=== PATIENT | female | born 1965 | race Caucasian/White ===

== ENCOUNTER 2018-03-27 12:29 | Emergency (ER) | payer OTHER ==
[2018-03-27 12:54] VITALS: BP 119/51
--- NOTE | 2018-03-27 13:06 | UC ---
UC General HPI - HPI Summary HPI Summary: pt c/o a 3-5 days hx nasal congestion, ear pressure, post nasal drip that is causing a cough. no cp, sob or fever. also notes to bug bites on back of neck. taking her allergy medication - History of Current Complaint Stated Complaint: BILATERAL EAR PAIN,CONGESTION Time Seen by Provider: 03/27/18 12:49 Hx Obtained From: Patient Hx Last Menstrual Period: 03/26 Onset/Duration: Gradual Onset Timing: Constant Pain Intensity: 2 Aggravating: nothing Alleviating: nothing Associated Signs & Symptoms: Positive: Cough, Headache. Negative: Chest Pain, Fever, SOB, Wheezing - Allergy/Home Medications Allergies/Adverse Reactions: Allergies Allergy/AdvReac Type Severity Reaction Status Date / Time amitriptyline Allergy Vomiting Verified 03/27/18 12:56 diclofenac Allergy Vomiting Verified 03/27/18 12:56 Sulfa (Sulfonamide Allergy Hives Verified 03/27/18 12:56 Antibiotics) PMH/Surg Hx/FS Hx/Imm Hx - Additional Past Medical History Additional PMH: chronic neck/back pain Other History Of: Negative For: HIV - Surgical History Surgical History: Yes Surgery Procedure, Year, and Place: C-Sections, 1984 1986 1993; Tonsillectomy as a child - Family History Known Family History: Positive: None - neg for HTN or CAD - Social History Occupation: Disabled Lives: With Family Alcohol Use: Occasionally Substance Use Type: None Smoking Status (MU): Former Smoker When Did the Patient Quit Smoking/Using Tobacco: ~2000 - Immunization History Most Recent Influenza Vaccination: Not the 2014/2015 Season Vaccination Up to Date: Yes Review of Systems Constitutional: Negative Skin: Rash - insect bites neck Eyes: Negative ENT: Ear Ache, Nasal Discharge, Sinus Congestion, Sinus Pain/Tenderness Respiratory: Cough Cardiovascular: Negative Gastrointestinal: Negative Genitourinary: Negative Motor: Negative Neurovascular: Negative Musculoskeletal: Negative Neurological: Negative Psychological: Negative Is Patient Immunocompromised?: No All Other Systems Reviewed And Are Negative: Yes Physical Exam Triage Information Reviewed: Yes Appearance: Well-Appearing Vital Signs: Initial Vital Signs Temp 98.5 F 03/27/18 12:41 Pulse 85 03/27/18 12:41 Resp 16 03/27/18 12:41 BP 119/51 03/27/18 12:41 Pulse Ox 100 03/27/18 12:41 Vital Signs Reviewed: Yes Eyes: Positive: Conjunctiva Clear ENT: Positive: Pharynx normal, Nasal congestion, TMs normal - 1mm abrasion R canal. Negative: Nasal drainage, Sinus tenderness Neck: Positive: Supple, Nontender, No Lymphadenopathy Respiratory: Positive: Lungs clear, Normal breath sounds Cardiovascular: Positive: RRR, No Murmur Abdomen Description: Positive: Nontender, No Organomegaly, Soft Bowel Sounds: Positive: Present Musculoskeletal: Positive: ROM Intact Neurological: Positive: Alert Psychological: Positive: Age Appropriate Behavior Skin Exam: Normal, Other - 2 small red spots to back of neck c/w insect bites. blanches, no blistering and not petechial. Course/Dx - Course Course Of Treatment: pt advised to consider decongestant. nothing to suggest bacterial infection. - Differential Dx - Multi-Symptom Provider Diagnoses: URI, insect bites neck Discharge - Sign-Out/Discharge Documenting (check all that apply): Discharge/Admit/Transfer - Discharge Plan Condition: Stable Disposition: HOME Patient Education Materials: Insect Bite or Sting (ED), Upper Respiratory Infection (DC) Referrals: Tami Melissa MD [Primary Care Provider] - 7 Days - Billing Disposition and Condition Condition: STABLE Disposition: HOME
== END 2018-03-27 13:14 | disposition home or self-care (01) ==
LOC: UCCORT 12:29
DX: S10.86XA Insect bite of other specified part of neck, initial encounter (principal); W57.XXXA Bitten or stung by nonvenomous insect and other nonvenomous arthropods, initial encounter; Y93.9 Activity, unspecified; Y92.9 Unspecified place or not applicable; Z88.6 Allergy status to analgesic agent; Z88.8 Allergy status to other drugs, medicaments and biological substances; Z87.891 Personal history of nicotine dependence; J06.9 Acute upper respiratory infection, unspecified
CPT/HCPCS: 99212; G0463

== ENCOUNTER 2018-11-13 13:50 | Emergency (ER) | payer OTHER ==
--- NOTE | 2018-11-13 16:44 | UC ---
Truncal Trauma HPI - HPI Summary HPI Summary: 53-year-old female comes to clinic today with chief complaint of left-sided pain after a fall that wasn't a week ago. Patient tripped and fell in a hole the ground and landed on her left side. She landed on her left shoulder and left ribs and left leg. These areas are continuing to hurt. The worst pain is at the left ribs and then the left shoulder and then the left greater trochanter. Patient's been able to walk. No shortness of breath. There is decreased range of motion of the left shoulder secondary to pain. Pain is not improved as she would expect and therefore she came to clinic today. Patient over the last couple of months is also noticed that she's had right eyelid drooping. She's had a long history of being off balance and she tells me she's had MRIs and CTs everything else is of his long history of being off balance. At this time she does not have a primary care physician. She reports several falls since June 2018 and she has not been evaluated for any of those falls. The right eyelid drooping was noticed a couple of months ago. Patient also reports difficulty finding words intermittently. She is also noticed some numbness in the right side of her face. - History Of Current Complaint Chief Complaint: UCGeneralIllness Stated Complaint: S/P FALL (1WK) LEFT SIDE RIB/LEG PAIN Time Seen by Provider: 11/13/18 16:23 Hx Last Menstrual Period: 10/27/18 Pain Intensity: 7 - Allergies/Home Medications Allergies/Adverse Reactions: Allergies Allergy/AdvReac Type Severity Reaction Status Date / Time amitriptyline Allergy Vomiting Verified 11/13/18 14:19 diclofenac Allergy Vomiting Verified 11/13/18 14:19 Sulfa (Sulfonamide Allergy Hives Verified 11/13/18 14:19 Antibiotics) PMH/Surg Hx/FS Hx/Imm Hx Previously Healthy: Yes - CHRONIC OFF BALANCE Other History Of: Negative For: HIV - Surgical History Surgical History: Yes Surgery Procedure, Year, and Place: C-[facility]ctions, 1984 1987 1993; Tonsillectomy as a child - Family History Known Family History: Positive: None - neg for HTN or CAD - Social History Alcohol Use: Occasionally Substance Use Type: None Smoking Status (MU): Former Smoker When Did the Patient Quit Smoking/Using Tobacco: ~2000 - Immunization History Most Recent Influenza Vaccination: Not the 2014/2015 Season Vaccination Up to Date: Yes Review of Systems All Other Systems Reviewed And Are Negative: Yes Constitutional: Positive: Other - OFF BALANCE Skin: Positive: Bruising - LEFT HIP Eyes: Positive: Other - LEFT EYE LID DROOPING ENT: Positive: Negative Respiratory: Positive: Negative Cardiovascular: Positive: Chest Pain Gastrointestinal: Positive: Nausea - FOR SEVERAL DAYS Genitourinary: Positive: Negative Motor: Positive: Decreased ROM - LEFT SHOULDER Neurovascular: Positive: Negative Musculoskeletal: Positive: Other: - SEE HPI CHRONIC NECK AND BACK PAIN Neurological: Positive: Weakness - REPORTS CHRONIC LEG WEAKNESS. Negative: Headache Psychological: Positive: Negative Is Patient Immunocompromised?: No Physical Exam Triage Information Reviewed: Yes Appearance: Well-Appearing, No Pain Distress, Well-Nourished Vital Signs: Initial Vital Signs Temp 98 F 11/13/18 14:20 Pulse 81 11/13/18 14:20 Resp 17 11/13/18 14:20 BP 122/55 11/13/18 14:20 Pulse Ox 100 11/13/18 14:20 Vital Signs Reviewed: Yes Eye Exam: Normal Eyes: Positive: Conjunctiva Clear, Other: - RIGHT EYELID DROOPING ENT: Positive: Pharynx normal Neck exam: Normal Neck: Positive: Supple, Tenderness @ - MIDLINE,PT REPORTS IS CHRONIC Respiratory Exam: Normal Respiratory: Positive: Lungs clear, Normal breath sounds, No respiratory distress, Other: - TENDER LEFT LOWER LATERAL RIBS Cardiovascular: Positive: RRR Abdominal Exam: Normal Abdomen Description: Positive: Nontender, Soft Bowel Sounds: Positive: Present Musculoskeletal: Positive: Strength Intact, ROM Intact Neurological: Positive: Alert, Other: - Patient's right eyelid is drooping right eyelid drooping the forehead musculature is symmetric. No facial droop seen on exam. Speech normal. Arm and leg strength upper and lower and bilaterally equal. No sensation deficit on exam. Finger-nose and [id number] are normal. Psychological Exam: Normal Psychological: Positive: Age Appropriate Behavior Skin Exam: Normal Truncal Trauma Course/Dx - Course Course Of Treatment: Order Information: SHOULDER LEFT 2+ VWS. Accession Number : [id number]. CPT: 55991. Indication: Left shoulder pain. 4 views of left shoulder demonstrates AC joint arthritis. There is no fracture or. dislocation. No other bone or joint abnormality is identified. IMPRESSION: AC joint arthritis without evidence of fracture. . <Electronically signed by Vita Schulte MD in OV> 1735. Order Information: RIBS LT UNI W/PA CH MIN 3 VWS. Accession Number: [id number]. CPT: 78248. Indication: Fall. Chest pain. 3 views of left ribs demonstrate no definite fracture or dislocation. Dual-energy PA view. of the chest demonstrates no evidence of a pneumothorax. IMPRESSION: No fracture of the left RIBS. No pneumothorax is noted. . <Electronically signed by Vita Schulte MD in OV> 11/13/18 1737. Order Information: HIP LEFT 2 VIEWS AND PELVIS. Accession Number: [id number]. CPT: 68060. Indication: Left hip pain. 2 views of left hip and an AP view of the pelvis demonstrates pelvic ring to be intact. There is no fracture or dislocation noted. No other bone or joint abnormality is noted. IMPRESSION: No fracture of the left hip or pelvis is noted. . < Electronically signed by Vita Schulte MD in OV> 11/13/18 [id number]. I discussed the x -ray reports with the patient and her . The plan will be ice and ibuprofen for the shoulder and left hip. Also discussed range of motion for the left shoulder. For the RIBS we have given her an incentive spirometer here in clinic and she will also use ibuprofen. Follow up with her primary care doctor if any continued issues recheck sooner if worse. She is able to get history from her about the right eyelid drooping and the difficulty with speech finding and the difficulty with balance. Patient's reports his been going on for about 5 years. The couple do believe that she is seen a neurologist in that time. For these conditions. However the frequency of falls has increased over the last several months. On initial examination I wanted to get a head CT now in clinic however are CT machine is currently being fixed and will not be available today. Given that this is a five-year issue rather than a several month issue is a initially thought I recommended follow- up with a neurologist in the near future.. He gets worse then go to the emergency department for further evaluation. - Differential Dx/Diagnosis Provider Diagnosis: Drooping eyelid, Speech abnormality, Frequent falls, Injury of left shoulder, Contusion of rib on left side, Contusion of left hip Discharge - Sign-Out/Discharge Documenting (check all that apply): Patient Departure All imaging exams completed and their final reports reviewed: Yes - Discharge Plan Condition: Stable Disposition: HOME Patient Education Materials: Shoulder Pain (ED), Hip Contusion (ED), Rib Fracture (ED) Referrals: [facility]ERR[facility] [Outside] Trace St MD [Medical Doctor] - Additional Instructions: FOLLOW UP WITH YOUR PRIMARY CARE DOCTOR AND NEUROLOGY. USE THE INCENTIVE SPIROMETER EVERY 4 HOURS WHILE AWAKE TO HELP AVOID RESPIRATORY INFECTION. GO TO THE EMERGENCY DEPARTMENT FOR ANY WORSENING OF YOUR CONDITION; WEAKNESS, NUMBNESS, DIFFICULTY WITH SPEECH OR VISION, SHORTNESS OF BREATH, PAIN OR QUESTIONS OR CONCERNS. - Billing Disposition and Condition Condition: STABLE Disposition: Home
[2018-11-13 16:50] VITALS: BP 134/55
== END 2018-11-13 18:08 | disposition home or self-care (01) ==
LOC: UCCORT 13:50
DX: H02.401 Unspecified ptosis of right eyelid (principal); R47.89 Other speech disturbances; Z91.81 History of falling; S49.92XA Unspecified injury of left shoulder and upper arm, initial encounter; S20.212A Contusion of left front wall of thorax, initial encounter; S70.02XA Contusion of left hip, initial encounter; W17.2XXA Fall into hole, initial encounter; Y92.9 Unspecified place or not applicable; Z88.1 Allergy status to other antibiotic agents; Z88.6 Allergy status to analgesic agent; Z88.8 Allergy status to other drugs, medicaments and biological substances; Z87.891 Personal history of nicotine dependence
CPT/HCPCS: 99212; G0463

== ENCOUNTER 2019-05-05 08:37 | Emergency (ER) | payer OTHER ==
[2019-05-05 08:47] VITALS: BP 112/50
[2019-05-05] MEDS ORDERED: Cyclobenzaprine TAB* 10 MG PO ONE (09:03)
--- NOTE | 2019-05-05 09:09 | UC ---
General HPI - HPI Summary HPI Summary: pt is c/o pain to her L back, she is pointing to her ribs. she denies hx injury, cough and sob. she has fibromyalgia but this is different. she denies any leg swelling or pain in her calf areas aside from her chronic mm soreness. trying otc pain patches without relief. no changes with exertion, meals and urinating plus moving bowels per her normal. - History of Current Complaint Chief Complaint: UCGeneralIllness Stated Complaint: LT SIDE RIB PAIN Time Seen by Provider: 05/05/19 08:50 Hx Obtained From: Patient Hx Last Menstrual Period: 04/17/19 Pain Intensity: 7 Aggravating: movement Alleviating: rest Associated Signs & Symptoms: Negative: Abdominal Pain, Cough, Chest Pain, Fever , SOB - Allergy/Home Medications Allergies/Adverse Reactions: Allergies Allergy/AdvReac Type Severity Reaction Status Date / Time amitriptyline Allergy Vomiting Verified 05/05/19 08:47 diclofenac Allergy Vomiting Verified 05/05/19 08:47 Sulfa (Sulfonamide Allergy Hives Verified 05/05/19 08:47 Antibiotics) PMH/Surg Hx/FS Hx/Imm Hx - Additional Past Medical History Additional PMH: fibromyalgia, "auto immune disorder" Other History Of: Negative For: HIV - Surgical History Surgical History: Yes Surgery Procedure, Year, and Place: C-Sections, 1984 1987 1993; Tonsillectomy as a child - Family History Known Family History: Positive: None - neg for HTN or CAD - Social History Lives: With Family Alcohol Use: Occasionally Substance Use Type: None Smoking Status (MU): Former Smoker When Did the Patient Quit Smoking/Using Tobacco: ~2000 - Immunization History Most Recent Influenza Vaccination: Not the 2014/2015 Season Vaccination Up to Date: Yes Review of Systems All Other Systems Reviewed And Are Negative: Yes Constitutional: Negative: Fever, Chills Skin: Negative: Rash Respiratory: Negative: Shortness Of Breath, Cough Cardiovascular: Negative: Palpitations, Chest Pain Musculoskeletal: Positive: Myalgia - chronic, Other: - L posterior rib/back pain Neurological: Negative: Weakness, Paresthesia, Numbness Physical Exam Triage Information Reviewed: Yes Appearance: Well-Appearing Vital Signs: Initial Vital Signs Temp 97.6 F 05/05/19 08:44 Pulse 88 05/05/19 08:44 Resp 17 05/05/19 08:44 BP 112/50 05/05/19 08:44 Pulse Ox 100 05/05/19 08:44 Vital Signs Reviewed: Yes Eyes: Positive: Conjunctiva Clear ENT: Positive: Pharyngeal erythema Neck: Positive: Supple, Nontender, No Lymphadenopathy Respiratory: Positive: Lungs clear, Normal breath sounds, No respiratory distress, Other: - No rash. Tender over L lower posterior and lateral ribs without instability. Cardiovascular: Positive: RRR, No Murmur Abdomen Description: Positive: Nontender, No Organomegaly, Soft. Negative: CVA Tenderness (R), CVA Tenderness (L), Pulsatile Mass Bowel Sounds: Positive: Present Musculoskeletal: Positive: Other: - Back: no deformity, swelling or rash. Tender over the L posterior lower ribs/low back just below ribs. Spine is non tender. Active rom aggravates the pain. Pt has gross s/v/m function x4 and a normal steady gait.. Negative: No Edema - and no calf cords Neurological: Positive: Alert Psychological: Positive: Age Appropriate Behavior Skin Exam: Normal Skin: Positive: Rashes Diagnostics - Laboratory Lab Results: u/a=1+ blood(lmp now) - Radiology No standard instances Radiology Interpretation Completed By: Radiologist - IMPRESSION: No active cardiopulmonary disease is noted. Course/Dx - Differential Dx - Multi-Symptom Differential Diagnoses: Other - no rash of shingles. no acute abdomen. no concern for fx's. u/a=1+ blood(minimal) and not typical of stone plus relief with being still and worse with movement thus doubt renal colic. No s/s's uti/ pyelonephritis. No cough or sob and not tachypnic, tachycardic or hypoxic. also , no leg swelling or calf cords and mm discomfort is chronic thus no concern for PE. cxr=nad. will tx mm relar and close f/u. - Diagnoses Provider Diagnosis: Musculoskeletal pain Discharge - Sign-Out/Discharge Documenting (check all that apply): Patient Departure All imaging exams completed and their final reports reviewed: Yes - Discharge Plan Condition: Stable Disposition: HOME Prescriptions: Cyclobenzaprine TAB* [Flexeril 10 MG TAB*] 10 mg PO TID #10 tab Patient Education Materials: Musculoskeletal Pain (ED) Referrals: Radha Wang MD [Primary Care Provider] - Additional Instructions: FOLLOW UP WITH YOUR PRIMARY CARE THIS WEEK. FOLLOW UP IMMEDIATELY IN THE ER FOR ANY CHANGES OR WORSENING. - Billing Disposition and Condition Condition: STABLE Disposition: Home
== END 2019-05-05 09:47 | disposition home or self-care (01) ==
LOC: UCCORT 08:37
DX: M54.9 Dorsalgia, unspecified (principal); F17.210 Nicotine dependence, cigarettes, uncomplicated; M79.7 Fibromyalgia
CPT/HCPCS: 71046; 81003; 99212; A9270-GY; G0463